=== PATIENT | male | born 1945 | race Caucasian/White ===

== ENCOUNTER 2017-01-24 07:30 | Emergency (ER) | payer BC ==
[2017-01-24 07:06] LABS: BASOPHIL# 0.1 X10e3 (0-0.3); BASOPHIL% 0.9 % (0-2.5); EOSINOPHIL# 0.2 X10e3 (0-0.7); EOSINOPHIL% 2.3 % (0.0-7.0); HEMATOCRIT 40.6 % (38.0-50.0); LYMPHOCYTE# 1.3 X10e3 (1.0-3.5); LYMPHOCYTE% 17.4 % (17.0-45.0); MEAN CELL VOLUME 97.5 FL (83-96); MEAN CORPUSCULAR HEMOGLOBIN 33.6 PG (28-34); MEAN CORPUSCULAR HGB CONC 34.4 g/dL (30-36); MEAN PLATELET VOLUME 7.9 FL (6.5-11.5); MONOCYTE# 0.7 X10e3 (0-1.0); MONOCYTE% 9.4 % (3.0-12.0); PLATELET COUNT 187 X10e3 (140-420); RED BLOOD COUNT 4.16 X10e (3.90-5.60); RED CELL DISTRIBUTION WIDTH 13.3 % (11.0-15.5); WHITE BLOOD COUNT 7.2 X10e3 (4.0-10.5)
[2017-01-24 07:18] LABS: DIFF IND NO
[2017-01-24 07:27] LABS: INR 1.3; PARTIAL THROMBOPLASTIN TIME 25.9 SECONDS (23.5-31.3); PROTHROMBIN TIME (PATIENT) 13.3 SECONDS (9.6-11.5)
[~2017-01-24 07:30] MED LIST: ASPIRIN PO; HCTZ PO; IBUPROFEN PO; LOPRESSOR PO; MULTI-VITAMIN1 TAB PO; NAPROXEN PO; NORVASC PO; PLENDIL PO; SLOW-MAG64 MG PO; TRAMADOL HCL50 M1 PO
[2017-01-24 08:05] LABS: ALBUMIN SERUM 4.5 g/dL (3.5-5.0); ALKALINE PHOSPHATASE 60 U/L (32-92); ALT (SGPT) 21 U/L (10-40); AST (SGOT) 23 U/L (10-42); BILIRUBIN, DIRECT 0.1 mg/dL (0.0-0.2); BILIRUBIN,INDIRECT 1.1 mg/dL (0.0-0.9); BILIRUBIN,TOTAL 1.2 mg/dL (0.2-2.0); BLOOD UREA NITROGEN 17 mg/dL (9-23); BUN/CREATININE RATIO 14.16; CALCIUM SERUM 9.5 mg/dL (8.4-10.2); CARBON DIOXIDE 26 mmol/L (22-31); CHLORIDE 100 mmol/L (100-111); CREATININE SERUM 1.2 mg/dL (0.6-1.4); GLOM FILT RATE Estimated ABOVE60 mL/min (>60); GLUCOSE FASTING 131 mg/dL (70-110); POTASSIUM 3.7 mmol/L (3.5-5.1); PROTEIN TOTAL SERUM 7.2 g/dL (6.0-8.3); SODIUM 136 mmol/L (135-145)
[2017-01-26] MEDS ORDERED: LOPRESSOR PO (14:18)
[2017-01-26] MEDS ORDERED: NORVASC PO (14:19)
[2017-01-26] MEDS ORDERED: BAYER ASPIRIN325 M1 PO (14:19)
[2017-01-26] MEDS ORDERED: HYDROCHLOROTHIA25 MG PO (14:19)
== END 2017-01-24 08:34 | disposition home or self-care (01) ==
LOC: CED 07:30
PROVIDERS: Emergency Medicine
DX: K62.5 Hemorrhage of anus and rectum (principal); I10 Essential (primary) hypertension
CPT/HCPCS: 36415; 80048; 80076; 85025; 85610; 85730; 99283

== ENCOUNTER → 2017-01-26 | Day surgery (SDC) | payer BC ==
[~2017-01-26] MED LIST changes: +BAYER ASPIRIN325 M1 PO; +HYDROCHLOROTHIA25 MG PO
--- NOTE | ~2017-01-26 | OR ---
Unit #: [id number] #: [id number] Patient: LACI SEN [id number] [address] [place], [place] [address] [id number] O MR#: [id number] NAME: LACI SEN ROOM: Date of Procedure: 01/26/2017 Admission Date: 01/26/2017 Surgeon: Andrew Wang M.D. : 1945 Attending Physician: Andrew Wang M.D. Referring Physician: Andrew Wang M.D. Primary Care Physician: Stefan Steele M.D. OPERATIVE REPORT PREOPERATIVE DIAGNOSES 1. Substantial hematochezia. 2. Anemia of acute gastrointestinal blood loss. The patient has had four days of substantial painless hematochezia, which is continued. PROCEDURE PERFORMED Colonoscopy up to cecum and terminal ileum with excellent preparation and good visualization. POSTOPERATIVE DIAGNOSES 1. Evidence of moderate pandiverticulosis. 2. Small to medium-sized external hemorrhoids. 3. There were telltale signs of recent bleeding in the form of blood residue in the left colon, whereas the right colon was completely normal and with normal mucosa as was the terminal ileum. No polyps were seen. The patient most likely has resolved left-sided diverticular hemorrhage. RECOMMENDATIONS Considerable time and discussion was held with the patient. His hemoglobin has dropped from 14 to 12 over the past 4 days and the bleeding has not resolved. Reassurance is in order. It was also hinted to him that the fact that his diverticular hemorrhage can recur. It is very hard to predict and in case of recurrent bleed, he will call me immediately. Considerable time was also spent in explaining the diet which has very little role in this instance and he should have high-fiber diet consisting of lots of foods, vegetable, salads, and brown bread. SEDATION USED MAC. DESCRIPTION OF PROCEDURE Following detailed explanation of potential risks and complications of a colonoscopy, namely perforation, bleeding, and complication related to sedation, the patient was brought to GI lab and laid in the left lateral decubitus position. A digital rectal examination was performed, which was normal. Lubricated tip of the Olympus video colonoscope was inserted through the anus and advanced under direct vision. The scope was advanced past rectosigmoid into descending colon. Fresh blood residue was noted in the sigmoid and descending colon. In addition, the patient had multiple medium-sized diverticula in this area. The blood residue was diluted with the patient's prep that he had taken earlier. No evidence of active bleeding was noted. The scope tip was then navigated all the way up to Unit #: [id number] #: [id number] Patient: LACI SEN cecum with visualization of the ileocecal valve and the appendiceal orifice. Preparation was excellent with good visualization and photodocumentation was obtained. Last several inches of the terminal ileum were also visualized after intubation of the ileocecal valve and appeared normal. Successive segments of the colonic mucosa were examined upon withdrawal. The terminal ileum, right colon, and transverse colon were completely normal. There being no blood residue in this area, where as the only remnants of blood residue was seen in the left colon. The patient had evidence of moderate pandiverticulosis, but most of these were profusely scattered in the left colon. No polyps were noted. No angiodysplasias were seen. The patient was noted to have small to medium-sized external hemorrhoids. There being no internal hemorrhoids. Therefore, it is unlikely that the hemorrhoidal bleeding is the etiology here and the most likely the etiology is resolved diverticular bleed. The scope was then withdrawn and the patient returned to the recovery area. He tolerated the procedure without any postprocedure complications. Dictated by.Selma. Suhas Renteria/nelida TD: 01/26/2017 21:45 JOB #: [id number] OPERATIVE REPORT X Andrew Wang MD X PROCEDURE OPERATIVE NOTE
[2017-01-26 16:12] LABS: BASOPHIL# 0.1 X10e3 (0-0.3); BASOPHIL% 0.8 % (0-2.5); EOSINOPHIL# 0.1 X10e3 (0-0.7); EOSINOPHIL% 1.3 % (0.0-7.0); HEMATOCRIT 36.1 % (38.0-50.0); HEMOGLOBIN 12.1 gm/dL (13.0-16.0); LYMPHOCYTE# 1.5 X10e3 (1.0-3.5); LYMPHOCYTE% 15.4 % (17.0-45.0); MEAN CELL VOLUME 99.9 FL (83-96); MEAN CORPUSCULAR HEMOGLOBIN 33.6 PG (28-34); MEAN CORPUSCULAR HGB CONC 33.6 g/dL (30-36); MEAN PLATELET VOLUME 8.4 FL (6.5-11.5); MONOCYTE# 0.7 X10e3 (0-1.0); MONOCYTE% 7.8 % (3.0-12.0); NEUTROPHIL# 7.1 X10e3 (1.5-7.1); NEUTROPHIL% 74.7 % (40-75); PLATELET COUNT 181 X10e3 (140-420); RED BLOOD COUNT 3.61 X10e (3.90-5.60); RED CELL DISTRIBUTION WIDTH 13.4 % (11.0-15.5); WHITE BLOOD COUNT 9.5 X10e3 (4.0-10.5)
[2017-01-26 16:13] LABS: DIFF IND NO
[2017-01-26 16:37] LABS: BLOOD UREA NITROGEN 14 mg/dL (9-23); CARBON DIOXIDE 26 mmol/L (22-31); CHLORIDE 107 mmol/L (100-111); GLOM FILT RATE Estimated ABOVE60 mL/min (>60); GLUCOSE FASTING 84 mg/dL (70-110); SODIUM 136 mmol/L (135-145)
== END | disposition home or self-care (01) ==
LOC: COPS 14:04
PROVIDERS: Internal Medicine Gastroenterology
DX: K57.31 Diverticulosis of large intestine without perforation or abscess with bleeding (principal); K64.4 Residual hemorrhoidal skin tags; D62 Acute posthemorrhagic anemia; I10 Essential (primary) hypertension; Z79.82 Long term (current) use of aspirin
CPT/HCPCS: 80048; 85025